=== PATIENT | female | born 1985 | race Caucasian/White ===

== ENCOUNTER 2021-02-15 18:18 | Emergency (ER) | payer OTHER ==
[~2021-02-15 18:18] MED LIST: ALPRAZOLAM 1MG T1 MG PO; ATROVENT HFA12.9 GM INH; BACLOFEN 10MG T10 MG PO; FLUOXETINE HCL20 MG PO; LEVAQUIN750 MG PO; MINOCYCLINE ER45 MG PO; ONDANSETRON ODT4 MG PO; PRILOSEC20 MG PO; PROVENTIL HFA6.7 GM INH
[2021-02-15 19:49] LABS: BASOPHIL 0.7 % (0-2); EOSINOPHIL 3.5 % (0-5); HCT 50.6 % (37.0-47.0); HGB 16.5 g/dl (12.5-16.0); LYMPHOCYTE 17.1 % (15-48); MCH 31.4 pg (25.0-31.0); MCHC 32.6 g/dL (32.0-36.0); MCV 96.2 fL (78.0-100.0); MONOCYTE 8.4 % (0-12); NRBC 0; PLT 286 K/uL (150-400); RBC 5.26 M/uL (4.20-5.40); RDW 13.3 % (11.5-14.0); WBC 14.9 K/uL (4.0-10.5)
[2021-02-15 19:55] LABS: BILIRUBIN NEGATIVE (NEGATIVE); BLOOD NEGATIVE Ery/uL (NEGATIVE); CLARITY CLEAR (CLEAR); COLOR YELLOW (YELLOW); GLUCOSE (U) NORMAL (NORMAL); LEUKOCYTES NEGATIVE Leu/uL (NEGATIVE); NITRITE NEGATIVE (NEGATIVE); PROTEIN NEGATIVE (NEGATIVE); UROBILINOGEN 0.2 mg/dL (0.2-1.0); pH 6.5 (5.0-9.0)
[2021-02-15 20:02] LABS: BILIRUBIN - TOTAL 0.3 mg/dL (0.2-1.0); BUN/CREAT RATIO (CALC) 9.5 RATIO; CREATININE 0.74 mg/dL (0.51-0.95); GLOBULIN (CALCULATION) 4.3 g/dL; POTASSIUM 5.1 mmol/L (3.5-5.1); TOTAL PROTEIN 8.3 g/dL (6.4-8.2)
[2021-02-15 20:04] LABS: AMPHETAMINES NEGATIVE (NEGATIVE); BARBITURATES NEGATIVE (NEGATIVE); ECSTASY (MDMA) NEGATIVE (NEGATIVE); MARIJUANA (THC) POSITIVE (NEGATIVE); METHADONE NEGATIVE (NEGATIVE); OPIATES NEGATIVE (NEGATIVE); OXYCODONE NEGATIVE (NEGATIVE)
[2021-02-15 20:12] LABS: LACTIC ACID 1.2 mmol/L (0.4-1.9)
[2021-02-16] MEDS ORDERED: ONDANSETRON ODT4 MG PO (07:57)
== END 2021-02-16 08:35 | disposition home or self-care (01) ==
LOC: FER 18:18
PROVIDERS: Nurse Practitioner Family
DX: K21.9 Gastro-esophageal reflux disease without esophagitis (principal); K52.9 Noninfective gastroenteritis and colitis, unspecified; F41.9 Anxiety disorder, unspecified; F17.210 Nicotine dependence, cigarettes, uncomplicated; Z20.822 Contact with and (suspected) exposure to COVID-19; Z90.49 Acquired absence of other specified parts of digestive tract; Z98.890 Other specified postprocedural states
CPT/HCPCS: 36415; 80053; 80305; 81003; 82150; 83605; 83690; 85025; 87040; 93005; J1100; J2270; J2405; J7030; Q9967; U0002